=== PATIENT | female | born 1945 | race Caucasian/White ===

== ENCOUNTER 2019-01-12 14:34 | Observation (INO) ==
[2019-01-12] MEDS ORDERED: Ketorolac 30 MG/ML VIAL IVP ONE (14:43)
[2019-01-12] MEDS ORDERED: Ondansetron 4 MG/2 ML VIAL IVP ONE (14:43)
[2019-01-12] MEDS ORDERED: 0.9 % Sodium Chloride 1,000 ML IVC ONE (14:43)
--- NOTE | 2019-01-12 14:55 | Emergency Department Note ---
Disposition Clinical Impression: Intractable low back pain Urinary tract infection Qualifiers: Urinary tract infection type: acute cystitis Hematuria presence: without hematuria Qualified Code(s): N30.00 - Acute cystitis without hematuria Disposition: Admitted As Inpatient Condition: Fair Referrals: Lalito Bañuelos MD [Primary Care Provider] - Forms: ED Satisfaction Letter Back Pain HPI - General Chief Complaint: ED Back Pain/Injury Stated Complaint: back pain Time Seen by Provider: 01/12/19 14:42 Source: patient, family, EMS Mode of arrival: EMS Limitations: no limitations Nursing Notes Reviewed: Yes Vital Signs Reviewed: Yes - History of Present Illness HPI Narrative: Patient presents by EMS with a history of some low back pain. She states this started when she was reading and twisted in bed. She has any other type of impact, injury or lifting. She cannot describe the pain other than it hurts". Pain does not radiate up or down the spine or to the abdomen. She reports normal urination and no difficulty with bowel movements. She has any pain or trouble like this before. She reports nausea without vomiting. She denies chest pain or shortness of breath. She denies fevers, chills or any lower extremity numbness, tingling or weakness. She has tried some Aleve without improvement of symptoms. She points to her mid low back as the area of pain. She denies any history of previous back problems. She denies kidney stones. She denies any abdominal procedures beyond screening colonoscopies with her history of ulcerative colitis. Pt Subjective Complaint: back pain Onset (ago): day(s) (5) Duration: constant, gradually worsening Similar Symptoms Previously: No Location: lumbar spine Pain Severity: moderate, severe Quality: unable to describe, other ("Just hurts") Radiation: none Improves with: none Worsens with: movement Context: turning/twisting Associated symptoms: Reports: difficulty walking. Denies: numbness, weakness, incontinence of bowel/bladder, fever, chills, abdominal pain, dysuria, hematuria Treatments prior to arrival: NSAIDS - Related Data Home Medications Medication Instructions Recorded Confirmed Diphenoxylate/Atropine [Lomotil 2 tab PO DAILY 01/09/19 01/12/19 2.5 mg/0.025 mg] Folic Acid 1 mg PO DAILY 01/09/19 01/12/19 Gabapentin [Neurontin] 100 mg PO TID 01/09/19 01/12/19 Indapamide [Lozol] 2.5 mg PO DAILY 01/09/19 01/12/19 Lisinopril [Zestril] 40 mg PO DAILY 01/09/19 01/12/19 Potassium Chloride [Klor-Con 10] 10 meq PO DAILY 01/09/19 01/12/19 Sulfasalazine [Azulfidine] 2 tab PO BID 01/09/19 01/12/19 amLODIPine [Norvasc] 5 mg PO DAILY 01/09/19 01/12/19 Previous Rx's Medication Instructions Recorded Ketorolac [Toradol] 10 mg PO Q6HR 5 Days #15 tablet 01/09/19 Meclizine [Antivert] 12.5 mg PO TID PRN #15 tablet 01/09/19 Allergies Allergy/AdvReac Type Severity Reaction Status Date / Time No Known Allergies Allergy Verified 01/09/19 11:16 All systems ED: reviewed and negative except as stated. Past Medical History - Past Medical History Attestation: Yes The following information was validated with the patient. Source: patient, old records reviewed, nursing notes reviewed Medical history: Reports: hypertension, other (Ulcerative colitis "since 16 years old"). Denies: coronary artery disease, diabetes, hyperlipidemia Surgical history: Reports: other (Tonsillectomy, multiple endoscopies) Psychiatric history: Reports: no psych history - Social History Smoking Status: Never smoker Smokeless Tobacco Status: No Alcohol use: Reports: none Drug use: Reports: none Physical Exam - General Limitations: physical limitation (Hard of hearing without hearing aid) General appearance: alert, in distress (Moaning) - Head Head exam: atraumatic, normocephalic, normal inspection - Eye Eye exam: Present: normal appearance, PERRL, EOMI. Absent: conjunctival injection - ENT ENT exam: normal exam, normal oropharynx, mucous membranes moist - Neck Neck exam: Present: normal inspection, full ROM, trachea midline - Chest Chest inspection: Present: normal inspection, symmetric chest wall rise - Respiratory Respiratory exam: Present: normal lung sounds bilaterally. Absent: respiratory distress, wheezes, prolonged expiratory phase - Cardiovascular Cardiovascular exam: Present: regular rate, normal rhythm, normal heart sounds. Absent: tachycardia - Abdominal Exam Abdominal exam: Present: soft, Non-Tender, normal bowel sounds. Absent: tenderness, distention, guarding, rebound, rigidity, Klein's sign, mass, pulsatile mass - Extremities Exam Extremities exam: Present: normal inspection, full ROM, normal capillary refill. Absent: tenderness, pedal edema, calf tenderness - Expanded Lower Extremity Exam Neurovascular/Tendon exam: Absent: pulse deficit, motor deficit, sensory deficit, tendon deficit Gait: not tested/not observed - Back Exam Back exam: Present: normal inspection. Absent: tenderness, CVA tenderness (R), CVA tenderness (L), muscle spasm, paraspinal tenderness, vertebral tenderness - Neurological Exam Neurological exam: Present: alert, oriented X3 - Psychiatric Psychiatric exam: Present: agitated - Skin Skin exam: Present: warm, dry, intact, normal color. Absent: diaphoresis, pallor Course Course Narrative: 1540: After return from x-ray, the patient is still moaning without improvement of pain. She is stating she wants something to "knock me out". Laboratory is now drawing her labs and they will be pending. I explained she did receive Toradol with her visiting couple days ago with improvement. As she is not demonstrating any amelioration of her pain, she has been written for a dose of 4 mg of morphine while we await the official radiology reading of her CT and results of laboratory studies. 1620: Patient does have a UTI. She is started on Rocephin and I placed a page to Dr. Ybarra for inpatient observation, physical therapy assessment and IV antibiotic therapy. Vital Signs Temperature 98.1 F 01/12/19 14:37 Pulse Rate 60 01/12/19 14:37 Respiratory Rate 18 01/12/19 14:37 Blood Pressure 160/109 01/12/19 14:37 O2 Sat by Pulse Oximetry 98 01/12/19 14:37 Temperature 98.1 F 01/12/19 14:37 Pulse Rate 60 01/12/19 16:10 Respiratory Rate 16 01/12/19 16:10 Blood Pressure 160/59 01/12/19 16:10 O2 Sat by Pulse Oximetry 98 01/12/19 16:10 Oxygen Delivery Oxygen Delivery Room Air Back Pain/Injury - Differential Diagnosis Differential Diagnosis: Likely: lumbar radiculopathy, sciatica, strain of lumbar region (Compression fracture), renal colic - Medical Records Medical records reviewed: Yes I reviewed the patient's medical records. Patient did not relate that she has seen a couple days ago for hip pain. She is evaluated in this department with initial presentation and imaging as follows: - History of Present Illness HPI Narrative: Patient presents to the ED complaining of left hip pain that started 2 days ago. She denies any specific injury. States she thinks it may be from previously lying and sleeping in a position in which her legs were drawn up and she could not straighten them out. She has not fallen recently. She cannot describe or rate her pain despite being given a pain scale and numerous adjectives and pain descriptors to choose from. She only will tell me that it "hurts bad" and has been getting worse over the past 2 days. The pain does not radiate down the leg or into the back. She denies any numbness, tingling or weakness in the leg or any trouble moving the leg. She denies any redness, swelling, warmth or skin changes in the area. She denies any prior problems or injuries to her hip. She has tried taking some of the gabapentin that she was prescribed for her knee pain last year without improvement. She has not tried anything else for her pain such as acetaminophen or ibuprofen although she does have a very large bottle of Aleve with her other medications. She is choosing to lie on her left side in the position which she states makes the pain better. She cannot think of anything else that makes her pain better or worse. She also reports nausea from the car ride to the ED. XR/XR hip complete LT IMPRESSION: 1. Normal left hip alignment with no acute abnormality and minimal degenerative changes. 2. Right hip chronic avascular necrosis with subtle articular collapse and secondary moderate osteoarthritis. D/ / 01/09/2019 12:50:51 Vic Carbajal MD / [facility] - Lab Data Lab results reviewed: Yes I reviewed the patient's lab results. Result diagrams: 01/12/19 15:37 01/12/19 15:37 Lab Results 01/12/19 01/12/19 01/12/19 Range/Units 15:37 15:37 16:00 WBC 11.0 (4.3-11.1) K/mcL RBC 4.92 (3.82-4.97) M/mcL Hgb 14.8 (11.5-15.4) g/dL Hct 42.7 (35.3-44.9) % MCV 86.8 (83.0-100.0) fL MCH 30.1 (28.0-33.3) pg MCHC 34.7 (31.6-35.5) g/dL RDW 12.9 (11.5-14.5) % Plt Count 266 (140-400) K/mcL MPV 10.5 (9.4-12.4) fL Immature Gran % 0.4 (0-4) % Seg Neutrophils % 80.4 % Lymphocytes % 12.1 % Monocytes % 7.0 % Eosinophils % 0.0 % Basophils % 0.1 % Neutrophils # 8.8 (1.6-8.9) K/mcL Lymphocytes # 1.3 (0.6-4.6) K/mcL Monocytes # 0.8 (0.0-1.3) K/mcL Eosinophils # 0.0 (0.0-0.6) K/mcL Basophils # 0.0 (0.0-0.2) K/mcL Sodium 141 (136-145) mEq/L Potassium 3.3 L (3.5-5.1) mEq/L Chloride 100 (98-107) mEq/L Carbon Dioxide 26 (23-29) mEq/L BUN 25 H (8-23) mg/dL Creatinine 0.93 (0.60-1.20) mg/dL Est GFR ( Amer) > 60 (> 60) Est GFR (Non-Af Amer) 59 L (> 60) BUN/Creatinine Ratio 27 H (6-26) Glucose 125 H (70-105) mg/dL Calculated Osmolality 298 (280-300) Calcium 9.9 (8.6-10.3) mg/dL Total Bilirubin 0.6 (0.3-1.0) mg/dL Direct Bilirubin 0.1 (0.0-0.2) mg/dL Indirect Bilirubin 0.5 (0.0-1.2) mg/dL AST 49 H (13-39) Units/L ALT 28 (7-52) Units/L Alkaline Phosphatase 85 (34-104) Units/L Serum Total Protein 7.8 (6.4-8.9) g/dL Albumin 4.3 (3.5-5.7) g/dL Globulin 3.5 (2.4-3.5) g/dL Albumin/Globulin Ratio 1.2 (1.1-2.2) Amylase 28 L (29-103) Units/L Lipase 27 (11-82) Units/L Urine Color Yellow (Yellow) Urine Clarity Cloudy A (Clear) Urine pH 7.0 (5.0-8.0) pH Units Ur Specific [place] 1.020 (1.010-1.025) Urine Protein 30 H (Neg-Trace) mg/dL Urine Glucose (UA) Normal (Normal) mg/dL Urine Ketones >=160 H (Negative) mg/dL Urine Blood Trace-lysed H (Negative) Urine Nitrite Positive A (Negative) Urine Bilirubin Small H (Negative) Urine Urobilinogen Normal (Normal) mg/dL Ur Leukocyte Esterase Trace H (Negative) Urine Microscopic RBC 0-3 (0-3) per hpf Urine Microscopic WBC 5-15 H (0-3) per hpf Urine Bacteria Many H (None-Few) per hpf Hyaline Casts Few (None-Few) per lpf Ur Culture Indicated? YES A (NO) - Radiology Data Radiology results reviewed: Yes I reviewed the patient's radiology results. CT is performed of the abdomen and pelvis without IV or oral contrast. This shows the base lungs be free of infiltrate, effusion or mass. The liver, spleen and pancreas appear normal with exception of respiratory motion artifact. Kidneys are without obstruction or stone. Bowel is without inflammatory change, obstruction or perforation. The appendix is well visualized and is normal. The aorta and retroperitoneum appear normal. Patient has old sclerotic bone in the low lumbar spine without compression, spondylolysis/listhesis or acute disc space abnormality. She does have a small disc protrusion at L5-S1 without central cord stenosis. Patient has degenerative changes about the facet joints of the lumbar spine. Pelvis appears normal with exception of significant degenerative change and osteonecrosis of the right hip. No other acute abnormalities are seen. This is on my interpretation. Impressions Abdomen/Pelvis CT 01/12/19 14:42 IMPRESSION: 1. Exam detail diminished at the lung bases and upper abdomen because of breathing motion blurring detail and resulting and misregistration. 2. No CT evidence of an acute intra-abdominal or intrapelvic process. 3. Diverticulosis coli without CT evidence of acute diverticulitis. 4. Mild calcific atherosclerosis. 5. Mild to moderate severity bilateral hip joint and bilateral SI joint osteoarthritis. D/ / Steve Paniagua / Steve Paniagua Interpreting Provider: Steve Paniagua
[2019-01-12] MEDS ORDERED: Morphine Sulfate 2 MG/ML SYRINGE IVP ONE (15:38)
[2019-01-12 15:46] LABS: Basophils % 0.1 %; Hematocrit 42.7 % (35.3-44.9); Hemoglobin 14.8 g/dL (11.5-15.4); Immature Granulocytes % 0.4 % (0-4); Lymphocytes # 1.3 K/mcL (0.6-4.6); Lymphocytes % 12.1 %; Mean Corpuscular HGB Conc 34.7 g/dL (31.6-35.5); Mean Corpuscular Hemoglobin 30.1 pg (28.0-33.3); Mean Corpuscular Volume 86.8 fL (83.0-100.0); Mean Platelet Volume 10.5 fL (9.4-12.4); Monocytes # 0.8 K/mcL (0.0-1.3); Neutrophils # 8.8 K/mcL (1.6-8.9); Platelet Count 266 K/mcL (140-400); Red Blood Count 4.92 M/mcL (3.82-4.97); Red Cell Distribution Width 12.9 % (11.5-14.5); Segmented Neutrophils % 80.4 %
[2019-01-12 16:00] LABS: Alanine Aminotransferase 28 Units/L (7-52); Albumin 4.3 g/dL (3.5-5.7); Albumin/Globulin Ratio 1.2 (1.1-2.2); Alkaline Phosphatase 85 Units/L (34-104); Amylase 28 Units/L (29-103); Aspartate Amino Transferase 49 Units/L (13-39); BUN/Creatinine Ratio 27 (6-26); Bilirubin,Direct 0.1 mg/dL (0.0-0.2); Bilirubin,Indirect 0.5 mg/dL (0.0-1.2); Bilirubin,Total 0.6 mg/dL (0.3-1.0); Blood Urea Nitrogen 25 mg/dL (8-23); Calcium 9.9 mg/dL (8.6-10.3); Carbon Dioxide 26 mEq/L (23-29); Chloride 100 mEq/L (98-107); Globulin 3.5 g/dL (2.4-3.5); Glucose 125 mg/dL (70-105); Lipase 27 Units/L (11-82); Osmolality,Calculated 298 (280-300); Potassium 3.3 mEq/L (3.5-5.1); Sodium 141 mEq/L (136-145); Total Protein 7.8 g/dL (6.4-8.9); eGFR For African Americans > 60 (> 60); eGFR For Non-African Americans 59 (> 60)
[2019-01-12 16:08] LABS: Bilirubin,Urine Small (Negative); Blood,Urine Trace-lysed (Negative); Clarity,Urine Cloudy (Clear); Glucose,Urine (UA) Normal (Normal); Ketones,Urine >=160 mg/dL (Negative); Leukocyte Esterase,Urine Trace (Negative); Nitrite,Urine Positive (Negative); Protein,Urine 30 mg/dL (Neg-Trace); Urobilinogen,Urine Normal (Normal)
[2019-01-12 16:17] LABS: Color,Urine Yellow (Yellow)
[2019-01-12 16:18] LABS: Bacteria,Urine Many per hpf (None-Few); Hyaline Casts,Urine Few per lpf (None-Few); RBC,Urine 0-3 per hpf (0-3)
[2019-01-12] MEDS ORDERED: cefTRIAXone 2,000 MG in 0.9 % Sodium Chloride Mini Bag 100 ML IVPB ONE (16:20)
[2019-01-12] MEDS ORDERED: 0.9 % Sodium Chloride 1,000 ML IVC SCH (16:30)
[2019-01-12] MEDS ORDERED: MOM Conc 10 ML UD.LIQ PO PRN (16:47)
[2019-01-12] MEDS ORDERED: Naloxone 0.4 MG/ML INJ IVP PRN (16:47)
[2019-01-12] MEDS ORDERED: Mag Hydrox/Al Hydrox/Simeth 30 ML UDC PO PRN (16:47)
[2019-01-12] MEDS ORDERED: Ondansetron 4 MG/2 ML VIAL IVP PRN (16:47)
[2019-01-12] MEDS ORDERED: Ibuprofen 400 MG TABLET PO PRN (16:47)
[2019-01-12] MEDS ORDERED: *HR* OxyCODONE Immed Rel 5 MG TABLET PO ONE (16:55)
[2019-01-12] MEDS: 0.9 % Sodium Chloride 1,000 ML IVC SCH (18:11)
[2019-01-12] MEDS: sulfaSALAzine 500 MG TABLET PO SCH (19:52)
[2019-01-12] MEDS: Gabapentin 100 MG CAPSULE PO SCH (19:52)
[2019-01-12] MEDS: *HR* OxyCODONE Immed Rel 5 MG TABLET PO PRN (23:55)
[2019-01-13] MEDS: 0.9 % Sodium Chloride 1,000 ML IVC SCH ×2 (00:52→08:25)
[2019-01-13] MEDS: sulfaSALAzine 500 MG TABLET PO SCH ×2 (08:13→19:53)
[2019-01-13] MEDS: Lisinopril 20 MG TABLET PO SCH (08:14)
[2019-01-13] MEDS: amLODIPine 5 MG TABLET PO SCH (08:14)
[2019-01-13] MEDS: Diphenoxylate/Atropine 1 TAB TABLET PO SCH (08:14)
[2019-01-13] MEDS: Gabapentin 100 MG CAPSULE PO SCH ×3 (08:14→19:53)
[2019-01-13] MEDS: Folic Acid 1 MG TABLET PO SCH (08:14)
[2019-01-13] MEDS: *HR* OxyCODONE Immed Rel 5 MG TABLET PO PRN (08:18)
--- NOTE | 2019-01-13 10:52 | Internal Med History&Physical ---
Date of Encounter: 01/13/19 Time of Encounter: 10:15 Assessment and Plan (1) Intractable low back pain Current visit: Yes Status: Acute Possible extra-articular manifestation of ulcerative colitis. Known LS-spine degenerative changes from [address] scan of LS-spine and SI joints will be done. Ibuprofen has been started. (2) Ulcerative colitis Current visit: Yes Status: Acute Continue sulfasalazine. Qualifiers: Ulcerative colitis location: unspecified ulcerative colitis location Digestive disease complication type: unspecified complication Qualified Code(s): K51.919 - Ulcerative colitis, unspecified with unspecified complications (3) Hypertension Current visit: Yes Status: Chronic Continue lisinopril, Lozol, Norvasc, and potassium Qualifiers: Hypertension type: essential hypertension Qualified Code(s): I10 - Essential (primary) hypertension (4) Urinary tract infection Current visit: Yes Status: Acute She was started on Rocephin empirically in emergency room. Add Lactobacillus and await urine culture report. Qualifiers: Urinary tract infection type: acute cystitis Hematuria presence: without hematuria Qualified Code(s): N30.00 - Acute cystitis without hematuria (5) Hypokalemia Current visit: Yes Status: Acute Likely due to Lozol use. Increase supplemental potassium and monitor labs. Internal Medicine - H&P: HPI Chief complaint: Back pain Admitted From: Emergency Dept Plans for Post Hospital Care: Home History of present illness: Ms. Lo is a 73 year old female who came to emergency room stating she had onset of constant pain in her low back area February 07. She denies any injury ass ociated. She is uncertain if she "twisted" in bed. She came to emergency room January 09 for evaluation. Left hip x-ray showed no acute abnormality in the left hip. 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 She was given Toradol and meclizine. Her pain did not improve so she came back to emergency room the day of admission. She was admitted to [facility] floor for ongoing care needs. She denies previous similar pains. She had CT of LS spine 01/02/2018 with degenerative changes in the lower lumbar spine with moderate spinal canal stenosis at L4-5. MRI cannot be done because of pacemaker. She denies gout or other bone joint or muscle disorders. Past Med Surg Social Fam HX - Past Medical History Medical history: hypertension, other Additional medical history: ulcerative collitis. pacer Psychiatric history: no psych history - Past Surgical History Surgical History: other - Social History Smoking Status: Never smoker Smokeless Tobacco Status: No Alcohol use: none Drug use: none - Family History Mother Hx Family Cardiac Disorders: No Hx Family Respiratory Disorders: No Hx Family Cancer: No Hx Family GI Disorders: No Hx Family Genitourinary Disorders: No Hx Family Endocrine Disorder: No Hx Family Musculoskeletal Disorders: No Hx Family Neuromuscular Disorders: No Hx Family Neurologic Disorders: No Hx Family HEENT Disorders: No Hx Family Autoimmune Disorders: No Hx Family Reproductive Disorders: No Hx Family Psychosocial Disorders: No Hx Family Medical Disorders: No Internal Medicine - H&P: Meds Diphenoxylate/Atropine [Lomotil 2.5 mg/0.025 mg] 2 tab PO DAILY 01/09/19 [ History] Folic Acid 1 mg PO DAILY 01/09/19 [History] Gabapentin [Neurontin] 100 mg PO TID 01/09/19 [History] Indapamide [Lozol] 2.5 mg PO DAILY 01/09/19 [History] Ketorolac [Toradol] 10 mg PO Q6HR 5 Days #15 tablet 01/09/19 [Rx] Lisinopril [Zestril] 40 mg PO DAILY 01/09/19 [History] Meclizine [Antivert] 12.5 mg PO TID PRN #15 tablet 01/09/19 [Rx] Potassium Chloride [Klor-Con 10] 10 meq PO DAILY 01/09/19 [History] Sulfasalazine [Azulfidine] 2 tab PO BID 01/09/19 [History] amLODIPine [Norvasc] 5 mg PO DAILY 01/09/19 [History] Allergy/AdvReac Type Severity Reaction Status Date / Time No Known Allergies Allergy Verified 01/09/19 11:16 All Systems PM: A 10-system review of systems was performed and is negative for pertinent findings except as documented above in the HPI. Review of systems: Gen.: She states her weight has been stable for several months Cardiovascular: She has history of hypertension. She had bradycardia requiring pacemaker placement several years ago. She denies NV heart failure DVT or pulmonary embolus. Respiratory: She is a lifelong nonsmoker and denies chronic lung disease GI: She was diagnosed with ulcerative colitis many years ago. She denies disorders of her liver gallbladder or exocrine pancreas : She denies hematuria dysuria or kidney stones Neurologic: She denies large distribution strokes or seizures. Endocrine: She denies diabetes thyroid disease or hyperlipidemia Hematology/oncology: She denies blood disorders cancers or anemia Psychiatric: She denies anxiety depression or other mental health issues [place] skeletal: As per history of present illness - Constitutional Vitals: Temp Pulse Resp BP Pulse Ox 98.5 F 88 16 127/57 97 01/13/19 10:31 01/13/19 10:31 01/13/19 10:31 01/13/19 10:31 01/13/19 10:31 Exam: Gen.: She is a well developed well-nourished female lying in bed who appears in no acute distress at present time while lying motionless HEENT: Head is atraumatic and normocephalic. Eyes: EOMI. There is no scleral icterus. Mouth: Mucosa is moist. Neck: Supple and nontender. There is no thyromegaly or adenopathy noted. Heart: Regular without murmurs gallops or ectopics Lungs: No wheezes or crackles are heard. Abdomen: Soft and nontender. No masses or guarding are noted. Back: There is no tenderness in palpating the lower spine or left lower flank area where she states the pain originates. Extremities: There is no cyanosis edema or clubbing noted. Dorsalis pedis and posterior tibial pulses are trace palpable bilaterally. Neurologic: Mental status: She is talkative and a good historian. Cranial nerves: Smile is symmetric. Forehead wrinkles bilaterally. Tongue protrudes midline. EOMI. Motor: There is no pronator drift. Cerebellar: Finger to nose is intact bilaterally. Skin: Warm and dry Internal Med - H&P Results - Labs CBC & Chem 7: 01/12/19 15:37 01/12/19 15:37 Labs: Short CBC 01/12/19 Range/Units 15:37 WBC 11.0 (4.3-11.1) K/mcL Hgb 14.8 (11.5-15.4) g/dL Hct 42.7 (35.3-44.9) % Plt Count 266 (140-400) K/mcL Neutrophils # 8.8 (1.6-8.9) K/mcL BMP 01/12/19 15:37 Sodium 141 Potassium 3.3 L Chloride 100 Carbon Dioxide 26 BUN 25 H Creatinine 0.93 Glucose 125 H Calcium 9.9 Liver Function 01/12/19 Range/Units 15:37 Total Bilirubin 0.6 (0.3-1.0) mg/dL Direct Bilirubin 0.1 (0.0-0.2) mg/dL AST 49 H (13-39) Units/L ALT 28 (7-52) Units/L Alkaline Phosphatase 85 (34-104) Units/L Albumin 4.3 (3.5-5.7) g/dL Urine 01/12/19 Range/Units 16:00 Urine Color Yellow (Yellow) Urine Clarity Cloudy A (Clear) Urine pH 7.0 (5.0-8.0) pH Units Ur Specific [place] 1.020 (1.010-1.025) Urine Protein 30 H (Neg-Trace) mg/dL Urine Glucose (UA) Normal (Normal) mg/dL - Impressions ITS Impressions Abdomen/Pelvis CT 01/12/19 14:42 IMPRESSION: 1. Exam detail diminished at the lung bases and upper abdomen because of breathing motion blurring detail and resulting and misregistration. 2. No CT evidence of an acute intra-abdominal or intrapelvic process. 3. Diverticulosis coli without CT evidence of acute diverticulitis. 4. Mild calcific atherosclerosis. 5. Mild to moderate severity bilateral hip joint and bilateral SI joint osteoarthritis. D/ / Steve Paniagua / Steve Paniagua Interpreting Provider: Steve Paniagua
[2019-01-13] MEDS: Ibuprofen 600 MG TABLET PO SCH ×2 (11:51→18:04)
[2019-01-13] MEDS: *HR* HYDROcodone/Acet 5/325 mg TABLET PO PRN (16:31)
[2019-01-13] MEDS: cefTRIAXone 2,000 MG in Water for inj. (sterile) 20 ML IVPB SCH (16:32)
[2019-01-13] MEDS: Lactobacillus 1 EACH CAP.SPRINK PO SCH (19:52)
[2019-01-14] MEDS: Ibuprofen 600 MG TABLET PO SCH ×4 (00:14→17:59)
[2019-01-14] MEDS: *HR* HYDROcodone/Acet 5/325 mg TABLET PO PRN (04:09)
[2019-01-14 05:10] LABS: Basophils % 0.1 %; Hematocrit 36.6 % (35.3-44.9); Immature Granulocytes % 0.3 % (0-4); Lymphocytes # 1.9 K/mcL (0.6-4.6); Lymphocytes % 27.1 %; Mean Corpuscular HGB Conc 32.8 g/dL (31.6-35.5); Mean Corpuscular Hemoglobin 29.7 pg (28.0-33.3); Mean Corpuscular Volume 90.6 fL (83.0-100.0); Monocytes # 0.8 K/mcL (0.0-1.3); Monocytes % 11.7 %; Neutrophils # 4.2 K/mcL (1.6-8.9); Platelet Count 188 K/mcL (140-400); Red Blood Count 4.04 M/mcL (3.82-4.97); Red Cell Distribution Width 13.3 % (11.5-14.5); Segmented Neutrophils % 60.8 %; White Blood Count 6.8 K/mcL (4.3-11.1)
[2019-01-14 05:32] LABS: BUN/Creatinine Ratio 18 (6-26); Blood Urea Nitrogen 16 mg/dL (8-23); Calcium 8.5 mg/dL (8.6-10.3); Carbon Dioxide 27 mEq/L (23-29); Chloride 107 mEq/L (98-107); Glucose 98 mg/dL (70-105); Magnesium 1.9 mg/dL (1.6-2.6); Osmolality,Calculated 293 (280-300); Potassium 3.1 mEq/L (3.5-5.1); Sodium 141 mEq/L (136-145); Uric Acid 6.8 mg/dL (2.3-7.6); eGFR For African Americans > 60 (> 60); eGFR For Non-African Americans > 60 (> 60)
[2019-01-14] MEDS: sulfaSALAzine 500 MG TABLET PO SCH ×2 (07:46→20:24)
[2019-01-14] MEDS: Lisinopril 20 MG TABLET PO SCH (07:47)
[2019-01-14] MEDS: amLODIPine 5 MG TABLET PO SCH (07:47)
[2019-01-14] MEDS: Folic Acid 1 MG TABLET PO SCH (07:47)
[2019-01-14] MEDS: Lactobacillus 1 EACH CAP.SPRINK PO SCH ×2 (07:47→20:23)
[2019-01-14] MEDS: Gabapentin 100 MG CAPSULE PO SCH ×3 (07:47→20:23)
[2019-01-14] MEDS: Diphenoxylate/Atropine 1 TAB TABLET PO SCH (07:47)
[2019-01-14] MEDS: Ondansetron ODT 4 MG TAB.RAPDIS SL PRN ×2 (07:55→14:26)
--- NOTE | 2019-01-14 11:05 | Internal Med Progress Note ---
Date of Encounter: 01/14/19 Time of Encounter: 10:58 - Assessment and plan (1) Intractable low back pain Current Visit: Yes Status: Acute Assessment and plan: January 14. ESR slightly elevated at 36. CRP normal at 8. Continue ibuprofen and add muscle relaxer. Anticipate discharge home tomorrow if stable and continue outpatient therapy if needed. (2) Ulcerative colitis Current Visit: Yes Status: Acute Assessment and plan: January 14. Continue sulfasalazine Qualifiers: Ulcerative colitis location: unspecified ulcerative colitis location Digestive disease complication type: unspecified complication Qualified Code(s): K51.919 - Ulcerative colitis, unspecified with unspecified complications (3) Hypertension Current Visit: Yes Status: Chronic Assessment and plan: January 14. Continue lisinopril, Norvasc, and potassium. Lozol will be discontinued since blood pressure is normalized and significant hypokalemia persists. Qualifiers: Hypertension type: essential hypertension Qualified Code(s): I10 - Essential (primary) hypertension (4) Urinary tract infection Current Visit: Yes Status: Acute Assessment and plan: January 14. Continue empiric Rocephin and lactobacillus. Urine final culture report pending. Qualifiers: Urinary tract infection type: acute cystitis Hematuria presence: without hematuria Qualified Code(s): N30.00 - Acute cystitis without hematuria (5) Hypokalemia Current Visit: Yes Status: Acute Assessment and plan: January 14. Potassium lower at 3.1. Discontinue Lozol and give additional potassium. - Subjective Interval history: January 14. She has no new complaints and feels better. - Constitutional Vitals: Temp Pulse Resp BP Pulse Ox 98.2 F 60 14 127/67 93 01/14/19 07:00 01/14/19 07:00 01/14/19 07:00 01/14/19 07:00 01/14/19 07:00 Exam: She is resting comfortably in bed and appears in no acute distress. Her affect is bright and cheerful. I reviewed her medications and lab results. I discussed with the occupational therapist his assessment and recommendations. Internal Medicine: Result - Labs CBC & Chem 7: 01/14/19 04:34 01/14/19 04:34 Labs: Short CBC 01/14/19 Range/Units 04:34 WBC 6.8 (4.3-11.1) K/mcL Hgb 12.0 D (11.5-15.4) g/dL Hct 36.6 (35.3-44.9) % Plt Count 188 (140-400) K/mcL Neutrophils # 4.2 (1.6-8.9) K/mcL BMP 01/14/19 04:34 Sodium 141 Potassium 3.1 L Chloride 107 Carbon Dioxide 27 BUN 16 Creatinine 0.88 Glucose 98 Calcium 8.5 L - Impressions Impressions Lumbar Spine CT 01/13/19 11:13 IMPRESSION: 1. Lower lumbar spine degenerative changes. 2. No erosions or ankylosis of SI joints. D/ / Antonio De La O / Antonio De La O Interpreting Provider: Antonio De La O Pelvis CT 01/13/19 11:13 IMPRESSION: No change from CT abdomen and pelvis yesterday. Stable mild degenerative changes to both SI joints. No findings for sacroiliitis. Stable degenerative changes to bilateral hips, right much more than left. Reference to the CT abdomen and pelvis from yesterday can be made for additional information. D/ / 01/13/2019 12:12:21 Curtis Ferguson MD / [facility] Interpreting Provider: Curtis Ferguson MD Consult Discharge Plan - Plan Referrals: Lalito Bañuelos MD [Primary Care Provider] - 1 week
[2019-01-14] MEDS: *HR* OxyCODONE Immed Rel 5 MG TABLET PO PRN ×2 (12:57→20:25)
[2019-01-14] MEDS: cefTRIAXone 2,000 MG in Water for inj. (sterile) 20 ML IVPB SCH (14:26)
[2019-01-15] MEDS: Ibuprofen 600 MG TABLET PO SCH ×2 (03:22→06:46)
[2019-01-15 07:11] LABS: BUN/Creatinine Ratio 13 (6-26); Blood Urea Nitrogen 12 mg/dL (8-23); Calcium 8.9 mg/dL (8.6-10.3); Carbon Dioxide 29 mEq/L (23-29); Chloride 103 mEq/L (98-107); Glucose 99 mg/dL (70-105); Osmolality,Calculated 288 (280-300); Potassium 3.4 mEq/L (3.5-5.1); Sodium 139 mEq/L (136-145); eGFR For African Americans > 60 (> 60); eGFR For Non-African Americans > 60 (> 60)
[2019-01-15 09:14] VITALS: BP 145/85
[2019-01-15] MEDS: Lactobacillus 1 EACH CAP.SPRINK PO SCH (09:15)
[2019-01-15] MEDS: Diphenoxylate/Atropine 1 TAB TABLET PO SCH (09:15)
[2019-01-15] MEDS: Lisinopril 20 MG TABLET PO SCH (09:16)
[2019-01-15] MEDS: amLODIPine 5 MG TABLET PO SCH (09:16)
[2019-01-15] MEDS: Gabapentin 100 MG CAPSULE PO SCH (09:16)
[2019-01-15] MEDS: Folic Acid 1 MG TABLET PO SCH (09:17)
[2019-01-15] MEDS: sulfaSALAzine 500 MG TABLET PO SCH (09:17)
--- NOTE | 2019-01-15 10:57 | Discharge Summary ---
Date of Encounter: 01/15/19 Time of Encounter: 10:20 - Discharge Diagnosis (1) Intractable low back pain Priority: Primary Status: Acute (2) Ulcerative colitis Priority: Secondary Status: Chronic Qualifiers: Ulcerative colitis location: unspecified ulcerative colitis location Digestive disease complication type: unspecified complication Qualified Code(s): K51.919 - Ulcerative colitis, unspecified with unspecified complications (3) Hypertension Priority: Secondary Status: Chronic Qualifiers: Hypertension type: essential hypertension Qualified Code(s): I10 - Essential (primary) hypertension (4) Urinary tract infection Priority: Secondary Status: Acute Qualifiers: Urinary tract infection type: acute cystitis Hematuria presence: without hematuria Qualified Code(s): N30.00 - Acute cystitis without hematuria (5) Hypokalemia Priority: Secondary Status: Acute Hospital course: Ms. Lo is a 73 year old female who came to emergency room stating she had onset of constant pain in her low back area February 07. She denies any injury associated. She is uncertain if she "twisted" in bed. She came to emergency ro om January 09 for evaluation. Left hip x-ray showed no acute abnormality in the left hip. 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 She was given Toradol and meclizine. Her pain did not improve so she came back to emergency room the day of admission. She was admitted to [facility] for ongoing care needs. Initial orders were written by emergency room physician. I saw her on January 13 and performed a history and physical. She was started on ibuprofen for back pain. PT and OT evaluations were done. CT of LS spine and SI joints were done without evidence of sacroiliitis seen. Lower lumbar spine degenerative changes were noted with encroachment of bilateral L5-S1 neural foraminal left greater than right. She had significant clinical improvement in her pain with ibuprofen and addition of Flexeril. On January 15 she felt stable for discharge home. She declined referral to outpatient physical therapy at this time. Lozol was discontinued because of hypokalemia and azotemia. BUN and creatinine improved to 12 and 0.90 by day of discharge. She was given additional supplement potassium and her potassium level increased to 3.4 by day of discharge. She will continue her home dose of supplemental potassium and remain off Lozol. Toprol-XL 25 mg daily was started to replace Lozol. She will continue with lisinopril and amlodipine as previously ordered. She was placed empirically on Rocephin for UTI on admission. Urine culture showed Escherichia coli. She will take Keflex with lactobacillus for 3 additional days at discharge. She will follow with her PCP Dr. Lalito Bañuelos within 1 week. - Time Spent with Patient Total time spent providing and/or coordinating discharge services: - Discharge Medications Prescriptions: New Ibuprofen [Motrin] 600 mg PO Q6HR #28 tablet cephALEXin [Keflex] 500 mg PO Q8H #9 capsule Cyclobenzaprine [Flexeril] 10 mg PO TID #21 tablet Lactobacillus [Culturelle] 1 each PO BID #6 cap.sprink Metoprolol XL (24 HR) Succ [Toprol XL] 25 mg PO DAILY #30 tab.er.24h Continue Lisinopril [Zestril] 40 mg PO DAILY Gabapentin [Neurontin] 100 mg PO TID Sulfasalazine [Azulfidine] 2 tab PO BID amLODIPine [Norvasc] 5 mg PO DAILY Folic Acid 1 mg PO DAILY Potassium Chloride [Klor-Con 10] 10 meq PO DAILY Diphenoxylate/Atropine [Lomotil 2.5 mg/0.025 mg] 2 tab PO DAILY Meclizine [Antivert] 12.5 mg PO TID PRN #15 tablet PRN Reason: Nausea Discontinued Indapamide [Lozol] 2.5 mg PO DAILY Home Medications: Diphenoxylate/Atropine [Lomotil 2.5 mg/0.025 mg] 2 tab PO DAILY 01/09/19 [History] Folic Acid 1 mg PO DAILY 01/09/19 [History] Gabapentin [Neurontin] 100 mg PO TID 01/09/19 [History] Lisinopril [Zestril] 40 mg PO DAILY 01/09/19 [History] Meclizine [Antivert] 12.5 mg PO TID PRN #15 tablet 01/09/19 [Rx] Potassium Chloride [Klor-Con 10] 10 meq PO DAILY 01/09/19 [History] Sulfasalazine [Azulfidine] 2 tab PO BID 01/09/19 [History] amLODIPine [Norvasc] 5 mg PO DAILY 01/09/19 [History] Cyclobenzaprine [Flexeril] 10 mg PO TID #21 tablet 01/15/19 [Rx] Ibuprofen [Motrin] 600 mg PO Q6HR #28 tablet 01/15/19 [Rx] Lactobacillus [Culturelle] 1 each PO BID #6 cap.sprink 01/15/19 [Rx] Metoprolol XL (24 HR) Succ [Toprol XL] 25 mg PO DAILY #30 tab.er.24h 01/15/19 [Rx] cephALEXin [Keflex] 500 mg PO Q8H #9 capsule 01/15/19 [Rx] Allergies/Adverse Reactions: Allergy/AdvReac Type Severity Reaction Status Date / Time No Known Allergies Allergy Verified 01/09/19 11:16 Date of admission: 01/12/19 16:43 Primary care physician: Lalito Bauñelos MD Consults: 01/12/19 16:47 Consult to Hand Umbrella [employer]pper [CONS] Routine Reason for SW Consult: Home assistance, possible placement 01/13/19 10:31 Consult to Occupational Therapy [CONS] Routine Comment: Evaluate, develop and implement POC Reason for Consult: Low back pain, weakness Does patient have active BEDREST order?: No Is patient medically & hemodynamically stable?: Yes Patient assessed for mobility or mobilized this visit?: Yes Consult to Physical Therapy [CONS] Routine Comment: Evaluate, develop and implement POC Reason for Consult: Low back pain, weakness Does patient have active BEDREST order?: No Is patient medically & hemodynamically stable?: Yes Patient assessed for mobility or mobilized this visit?: Yes - Constitutional Vitals: Temp Pulse Resp BP Pulse Ox 98.0 F 60 16 145/85 94 01/15/19 06:34 01/15/19 09:13 01/15/19 06:34 01/15/19 09:13 01/15/19 09:13 - Patient Status Disposition: Home, Self-Care Condition: Fair - Discharge Instructions Follow Up With: Lalito Bañuelos MD [Primary Care Provider] - 1 week - Diet and Activity Activity: resume usual activities as tolerated Diet: advance to your usual diet
== END 2019-01-15 14:05 | disposition home or self-care (01) ==
LOC: EMEROOPIK 14:34 → INPPIK 14:34
PROVIDERS: ADMIT Internal Medicine; ATTEND Internal Medicine